=== PATIENT | female | born 1990 | race Caucasian/White ===

== ENCOUNTER 2017-02-10 18:53 | Emergency (ER) | payer SELFPAY ==
[~2017-02-10] VITALS: Ht 167.6 cm; Wt 56.7 kg
[2017-02-10 19:28] VITALS: BP 100/65
== END 2017-02-10 20:12 | disposition home or self-care (01) ==
LOC: ER 19:29
DX: H00.012 Hordeolum externum right lower eyelid (principal)
CPT/HCPCS: 99283; A4606; Z7610

== ENCOUNTER → 2017-02-10 | Emergency (ER) | payer SELFPAY ==
--- NOTE | 2017-02-10 16:13 | NUR ---
PT CALLD TO ER, PT NOT IN WAITING ROOM
--- NOTE | 2017-02-10 16:20 | NUR ---
PT CALLED TO ER, PT NOT IN WAITING ROOM
--- NOTE | 2017-02-10 16:40 | NUR ---
PT CALLED TO ER, PT NOT IN WAITING ROOM
--- NOTE | 2017-02-10 16:50 | NUR ---
PT ELOPED FROM ER
== END | disposition left against medical advice (07) ==
LOC: ER 16:19
DX: Z53.21 Procedure and treatment not carried out due to patient leaving prior to being seen by health care provider (principal)